=== PATIENT | male | born 1980 | race Two or more races ===

== ENCOUNTER 2022-09-15 09:05 | Emergency (ER) | payer MEDICAID, OTHER ==
[~2022-09-15] VITALS: Ht 185.4 cm; Wt 93.1 kg
[2022-09-15 09:09] VITALS: BP 127/91
[2022-09-15 09:39] LABS: Basophils # (auto) 0.1 10 ^3/uL (0-0.2); Basophils % (auto) 0.8 % (0.0-2.0); Eosinophils # (auto) 0.2 10 ^3/uL (0-0.8); Eosinophils % (auto) 2.7 % (0.0-7.0); Hematocrit 46.7 % (41.0-53.0); Hemoglobin 15.9 g/dL (13.5-17.5); Lymphocytes % (auto) 26.4 % (10.0-50.0); Mean Corpuscular Hemoglobin 32.1 pg (28.0-32.0); Mean Corpuscular Volume 94.4 fL (80.0-100.0); Monocytes # (auto) 0.6 10 ^3/uL (0-1.3); Monocytes % (auto) 8.7 % (0.0-12.0); Neutrophils # (auto) 4.5 10 ^3/uL (1.6-8.6); Neutrophils % (auto) 61.4 % (37.0-80.0); Nucleated Red Blood Cells % 0.1 %; Red Blood Cells 4.94 10^6/uL (4.5-5.90); Red Cell Distribution Width 12.7 % (11.8-14.3); White Blood Cell 7.4 10^3/uL (4.4-10.8)
[2022-09-15 09:40] LABS: Urine Bacteria NONE SEEN /hpf (None Seen); Urine Blood Negative /uL (Negative); Urine Mucus FEW (None Seen); Urine Specific Gravity 1.023 (1.001-1.035); Urine WBC 25 /hpf (0 - 3); Urine WBC Clumps PRESENT /hpf (None Seen)
[2022-09-15 09:50] LABS: INR 0.93 (0.9-1.15); Partial Thromboplastin Time 28.8 sec (24.6-33.4)
[2022-09-15 09:53] LABS: Potassium 4.4 mmol/L (3.5-5.1)
[2022-09-15 10:00] LABS: BUN/Creatinine Ratio 12.6 (10.0-20.0); Bilirubin, Total 0.5 mg/dL (0.2-1.0); Calcium 9.1 mg/dL (8.5-10.1); Magnesium 3.4 mg/dL (1.6-2.6); Total Protein 7.5 g/dL (6.4-8.2)
[2022-09-15] MEDS ORDERED: MAALOX PLUS or MAALOX 30 ML PO ONE (10:00)
[2022-09-15 10:15] LABS: Alcohol, Urine < 3.0 mg/dL (0-10); Amphetamine Screen, Urine POSITIVE (NEGATIVE); Barbiturate Scree,Urine NEGATIVE (NEGATIVE); Benzodiazephine Screen, Urine NEGATIVE (NEGATIVE); Cannabinoid Screen, Urine NEGATIVE (NEGATIVE); Cocaine Screen, Urine NEGATIVE (NEGATIVE)
[2022-09-15 10:49] LABS: Opiate Scree,Urine NEGATIVE (NEGATIVE); Phencyclidine Screen, Urine NEGATIVE (NEGATIVE)
[2022-09-15] MEDS ORDERED: IBUP800T27 PO (11:26)
== END 2022-09-15 12:39 | disposition left against medical advice (07) ==
LOC: ER 09:05
DX: R07.89 Other chest pain (principal); J98.6 Disorders of diaphragm; R06.02 Shortness of breath; Z79.899 Other long term (current) drug therapy
CPT/HCPCS: 36415; 71045; 80053; 80307; 81001; 83735; 83880; 84484; 85025; 85610; 85730; 93005